=== PATIENT | female | born 1950 | race Caucasian/White ===

== ENCOUNTER 2019-12-05 19:24 | Observation (INO) | payer MEDICARE, OTHER ==
[~2019-12-05] VITALS: Ht 157.5 cm; Wt 76.7 kg
--- NOTE | 2019-12-05 21:00 | NUR ---
Pt arrived to the floor via strectcher. Pt was able to ambulate to the bed. Pt appeared to be very drowsy. She went to sleep shortly after. Pt did answer some questions but was unable to remember any of her medications. She was able to answer where she was from. Hospitalist was contacted because in report that was given from [place] the pt has a lady with her who was not familar with anything about the pt but stated she was her daughter. Pt has not had any visitors but her daughter did call twice to see if she had arrived to the floor. During pt assessment there was some bruising on pt left elbow and a few bruises on the pt legs. The pt stated that the bruises on her arm was from when she fell previously and family members helped her up. She stated the ones on her legs are from her family dogs. She also stated that she has a few scratches on her right arm that was from her itching. Pt would frequently fall asleep while I was asking her questions. Pt call light is within reach her bed alarm is also on at this time.
[2019-12-05 21:03] VITALS: BP 121/61; PULSE 86; TEMP 98.4
--- NOTE | 2019-12-05 23:00 | NUR ---
Pt currently sleeping in bed. Pt does respond to her name being called. Pt stated she wasn't having any pain.
[2019-12-06] VITALS (12 sets, daily range): BP systolic 102–150; BP diastolic 54–79; PULSE 52–72; TEMP 98–98.9
--- NOTE | 2019-12-06 03:30 | NUR ---
Pt did wake up and talked to me.Pt did not remember her medications. She informed me that she would let her daughter know so she could bring them in the morning. Pt was assissted to the bedside commode. Pt urine was also strained at this time. Pt is back in bed and has her call light within reach.
--- NOTE | 2019-12-06 06:26 | NUR ---
Pt currently lying in bed. Pt was asked how she was doing with pain. She stated that she was doing good.
[2019-12-06 06:42] LABS: BASO % 0.3 % (0.0-2.0); EOS # 0.1 (0.0-0.7); EOS % 1.4 % (0-4.0); GRAN # 3.6 (1.4-6.5); GRAN % 61.3 % (42.2-75.2); HEMOGLOBIN 10.9 g/dl (12.5-16.0); LYMPH # 1.6 (1.2-3.4); LYMPH % 27.1 % (20.0-51.0); MEAN CELL VOLUME 106 fl (80.0-100.0); MEAN CORPUSCULAR HEMOGLOBIN 33 pg (27.0-31.0); MEAN CORPUSCULAR HGB CONC 31 g/dl (33.0-37.0); MEAN PLATELET VOLUME 11.5 fl (7.4-10.4); MONO # 0.6 (0.1-0.6); MONO % 9.6 % (1.7-9.3); PLATELET COUNT 146 K/mm3 (130-400); RED BLOOD COUNT 3.31 M/mm3 (4.10-5.30); REDCELL DISTRIBUTION WIDTH-CV 12.7 % (11.5-14.5)
[2019-12-06 06:55] LABS: ALBUMIN 3.1 gm/dL (3.5-5.0); BILIRUBIN,TOTAL 0.5 mg/dL (0.0-1.0); CALCIUM 8.3 mg/dL (8.4-10.2); CREATININE, serum 1.32 (0.52-1.25); POTASSIUM 4.9 mmol/L (3.4-5.0); TOTAL PROTEIN 5.7 gm/dL (6.4-8.2)
--- NOTE | 2019-12-06 07:26 | NUR ---
Patient assisted up to BSC with assist of one. Gait steady. Voids and returns to bed. Rates pain in left abd and into flank 8/10, describes like someone is placing a clamp in her side. Would like pain medication. Patient denies any additional needs at this time.
--- NOTE | 2019-12-06 07:30 | NUR ---
Reported off to MELODY Hernandez. Pt currently in bed and has her call light within reach. Pt did request something for pain and MELODY Hernandez. Stated that she would get her something for pain.
--- NOTE | 2019-12-06 08:07 | NUR ---
Administered Zofran per patient request prior to giving the Dilaudid as patient has past history of getting nausea and vomiting with pain meds. Patient lying in bed. Daughter at bedside. Explain procedure to the patient that will be performed and that we will bring in the consent for her to sign. Denies additional needs at this time.
[2019-12-06] MEDS ORDERED: PRIL40 PO (09:47)
[2019-12-06] MEDS ORDERED: K-DUR20 MEQ PO (09:48)
[2019-12-06] MEDS ORDERED: VITAMIN D 50,1.25 MG PO (09:49)
[2019-12-06] MEDS ORDERED: DITROPAN 5MG TAB5 MG PO (09:49)
[2019-12-06] MEDS ORDERED: CENTRUM1 TA1 (09:51)
[2019-12-06] MEDS ORDERED: OCUVITE1 TA1 PO (09:52)
[2019-12-06] MEDS ORDERED: LYRICA 100MG C100 M1 PO (09:53)
[2019-12-06] MEDS ORDERED: VIACTIV PO (09:53)
--- NOTE | 2019-12-06 10:42 | NUR ---
Jorge here to take patient down to surery via bed.
--- NOTE | 2019-12-06 13:22 | NUR ---
Patient to room from PACU. Denies pain. Assist patient up to BSC to urinate. Daughter in room with the patient.
--- NOTE | 2019-12-06 15:18 | NUR ---
BRODIE met with the patient and Carolee (she has been with the patient's son for three years) to complete initial intake. The patient lives alone in [place], [place]. The patient has a wheelchair, walker, and cane. The patient is traveling with her wheelchair due to she gets tired and then she uses it. The patient's PCP is Sri Lora CNP and patient receives medications from [facility]. The patient would like any medications needed at discharge to be sent to [facility]. The patient does not have advanced directives in the EMR but states they are completed and designate her son, Martin from [place], [place]. The patient plans to head back home to [place] as soon as the doctor clears to travel back. The patient is visiting [place] because her was in the [employer] for 20 years and this was one of the duty stations. BRODIE attempted to contact PCP office to inquire about DPOA-HC. The office was closed ph# ([phone]). BRODIE will continue to monitor for any discharge needs.
--- NOTE | 2019-12-06 17:15 | NUR ---
Reviewed discharge instructions with the patient and her daughter. Questions answered. Patient verbalizes understanding to all and signs all discharge paperwork. Patient will get dressed at this time and her daughter has called for their ride to pick them up and they will use the call light when they are ready to leave.
--- NOTE | 2019-12-06 17:35 | NUR ---
Patient uses call light and says that her ride is at the ER entrance for her. Patient assisted out to POV via wheelchair by MELODY Ray.
== END 2019-12-06 17:35 | disposition home or self-care (01) ==
LOC: SURG 19:24
PROVIDERS: Physician Assistant; ADMIT Student in an Organized Health Care Education/Training Program
DX: N13.2 Hydronephrosis with renal and ureteral calculous obstruction (principal); E11.9 Type 2 diabetes mellitus without complications; K21.9 Gastro-esophageal reflux disease without esophagitis; N17.9 Acute kidney failure, unspecified; R41.82 Altered mental status, unspecified; D64.9 Anemia, unspecified; Z86.73 Personal history of transient ischemic attack (TIA), and cerebral infarction without residual deficits; Z90.49 Acquired absence of other specified parts of digestive tract; Z88.5 Allergy status to narcotic agent; Z79.4 Long term (current) use of insulin
CPT/HCPCS: C1769; C1894; C2617; G0378; J0690; J1170; J2405; J2704; J3010; J7030; Q9967